=== PATIENT | female | born 1985 | race Caucasian/White ===

== ENCOUNTER 2017-12-15 01:52 | Inpatient (IN) | payer SELFPAY ==
[2017-12-15] VITALS (29 sets, daily range): BP systolic 101–132; BP diastolic 51–83; PULSE 63–95; TEMP 98–98.6
[~2017-12-15] VITALS: Ht 160 cm; Wt 62.7 kg
[2017-12-15 02:39] LABS: BASO % 0.3 % (0.0-2.0); EOS % 0.4 % (0-4.0); GRAN # 7.5 (1.4-6.5); GRAN % 72.7 % (42.2-75.2); MEAN CELL VOLUME 70 fl (80.0-100.0); MEAN CORPUSCULAR HGB CONC 31 g/dl (33.0-37.0); MONO # 0.7 (0.1-0.6); MONO % 6.5 % (1.7-9.3); PLATELET COUNT 243 K/mm3 (130-400); RED BLOOD COUNT 4.83 M/mm3 (4.10-5.30)
[2017-12-15 02:40] LABS: HEMATOCRIT 33.6 % (37.0-47.0); HEMOGLOBIN 10.5 g/dl (12.5-16.0); MEAN CORPUSCULAR HEMOGLOBIN 22 pg (27.0-31.0)
[2017-12-15] MEDS ORDERED: PRENATAL MVI (02:42)
[2017-12-15] MEDS ORDERED: PROFERRIN ES12 MG PO (02:42)
[2017-12-16 05:00] VITALS: BP 113/61; PULSE 86; TEMP 97.7
[2017-12-16 07:53] VITALS: BP 97/58; PULSE 55; TEMP 98
[2017-12-16] MEDS ORDERED: IBU800 M1 PO (09:30)
== END 2017-12-16 15:05 | disposition home or self-care (01) | DRG 775 ==
LOC: LDRO 01:52 → LDR 02:00 → OB 11:10
PROVIDERS: Obstetrics & Gynecology
PROC: 10E0XZZ Delivery of Products of Conception, External Approach (ICD-10-PCS; principal; 2017-12-15)
PROC: 0HQ9XZZ Repair Perineum Skin, External Approach (ICD-10-PCS; 2017-12-15)
DX: O69.81X0 Labor and delivery complicated by cord around neck, without compression, not applicable or unspecified (principal); O70.0 First degree perineal laceration during delivery; Z3A.38 38 weeks gestation of pregnancy; Z37.0 Single live birth
CPT/HCPCS: J2590; J7120